=== PATIENT | female | born 1990 | race Caucasian/White ===

== ENCOUNTER 2023-03-21 14:16 | Observation (INO) | payer OTHER ==
[~2023-03-21] VITALS: Ht 160 cm; Wt 81.2 kg
[2023-03-21] MEDS ORDERED: PNV91TAB10 PO (14:55)
== END 2023-03-21 17:10 | disposition home or self-care (01) ==
LOC: MLD 14:16
PROVIDERS: ADMIT Obstetrics & Gynecology; ATTEND Obstetrics & Gynecology
DX: O42.913 Preterm premature rupture of membranes, unspecified as to length of time between rupture and onset of labor, third trimester (principal); Z3A.34 34 weeks gestation of pregnancy
CPT/HCPCS: 76815; 81000; G0378; G0379; Q0092; 36415

== ENCOUNTER 2023-03-29 22:40 | Observation (INO) | payer OTHER ==
[~2023-03-29] VITALS: Ht 160 cm; Wt 81.6 kg
[~2023-03-29 22:40] MED LIST: PNV91TAB10 PO
[2023-03-29 23:24] VITALS: BP 105/57; PULSE 85; RESP 18; TEMP 97.7
== END 2023-03-29 23:50 | disposition home or self-care (01) ==
LOC: MLD 22:40
PROVIDERS: ADMIT Obstetrics & Gynecology; ATTEND Obstetrics & Gynecology
DX: O62.9 Abnormality of forces of labor, unspecified (principal); Z3A.34 34 weeks gestation of pregnancy
CPT/HCPCS: G0378

== ENCOUNTER 2023-04-09 14:55 | Observation (INO) | payer OTHER ==
[~2023-04-09] VITALS: Ht 160 cm; Wt 83.9 kg
[2023-04-09 16:36] LABS: BASOPHILS % (AUTO) 0.2 % (0.0-2.0); EOSINOPHILS % (AUTO) 0.4 % (0.0-4.0); HEMATOCRIT 37.2 % (36-48); HEMOGLOBIN 12.7 g/dL (12.0-16.0); LYMPHOCYTES # (AUTO) 2.1 K/uL (2.5-16.5); LYMPHOCYTES % (AUTO) 24.9 % (20.5-51.1); MEAN CORPUSCULAR HEMOGLOBIN 31 pg (27-31); MEAN CORPUSCULAR HGB CONC 34 g/dL (33-37); MEAN CORPUSCULAR VOLUME 90.2 fL (80-94); MONOCYTES # (AUTO) 0.4 K/uL (0.8-1.0); MONOCYTES % (AUTO) 4.5 % (1.7-9.3); NEUTROPHILS # (AUTO) 5.8 K/uL (1.8-7.7); PLATELET COUNT (AUTO) 219 K/uL (140-450); RED BLOOD CELL COUNT(AUTO) 4.13 MIL/uL (4.20-5.40); RED CELL DISTRIBUTION WIDTH 13.8 % (11.6-13.7); WHITE BLOOD COUNT (AUTO) 8.4 K/uL (4.8-10.8)
[2023-04-09 16:53] LABS: APPEARANCE,URINE CLEAR (CLEAR); BILIRUBIN,URINE NEGATIVE (NEGATIVE); BLOOD, URINE NEGATIVE (NEGATIVE); COLOR,URINE YELLOW (YELLOW); LEUKOCYTE ESTERASE ,URINE NEGATIVE (NEGATIVE); NITRITE, URINE NEGATIVE (NEGATIVE); PROTEIN,URINE NEGATIVE (NEGATIVE); UGLUCOSE NEGATIVE (NEGATIVE); UROBILINOGEN,URINE 0.2 EU/dL (0.2 - 1)
[2023-04-09 17:02] LABS: ALBUMIN 2.4 g/dL (3.4-5.0); ANION GAP 10.9 (8-16); CALCIUM 8.9 mg/dL (8.5-10.1); CREATININE 0.5 mg/dL (0.6-1.3); POTASSIUM 3.9 mmol/L (3.5-5.1); TOTAL BILIRUBIN 0.2 mg/dL (0.0-1.0); TOTAL PROTEIN, SERUM 7.5 g/dL (6.4-8.2)
[2023-04-09] MEDS ORDERED: LACTATED RINGERS 1,000 ML IV SCH (19:45)
[2023-04-09] MEDS: LACTATED RINGERS 1,000 ML IV SCH (20:00)
[2023-04-09 20:57] VITALS: BP 107/65; PULSE 110; RESP 20; TEMP 98
[2023-04-10] MEDS ORDERED: LACTATED RINGERS 1,000 ML IV SCH (19:45)
== END 2023-04-10 10:15 | disposition home or self-care (01) ==
LOC: MLD 14:55
PROVIDERS: ADMIT Obstetrics & Gynecology; ATTEND Obstetrics & Gynecology
DX: O60.03 Preterm labor without delivery, third trimester (principal); O36.8130 Decreased fetal movements, third trimester, not applicable or unspecified; O26.893 Other specified pregnancy related conditions, third trimester; R10.9 Unspecified abdominal pain; R42 Dizziness and giddiness; Z3A.36 36 weeks gestation of pregnancy
CPT/HCPCS: 36415; 76805; 80053; 81003; 85025; 85384; 96360; 96361; G0378; Q0092

== ENCOUNTER 2023-04-12 18:05 | Inpatient (IN) | payer OTHER ==
[~2023-04-12] VITALS: Ht 160 cm; Wt 83.9 kg
[2023-04-12] MEDS: LACTATED RINGERS 1,000 ML IV SCH (18:29)
[2023-04-12] MEDS ORDERED: METHYLERGONOVINE 0.2 MG/ML AMP IM PRN ×2 (18:50→21:30)
[2023-04-12] MEDS ORDERED: CARBOPROST 250 MCG/ML AMP IM PRN (18:50)
[2023-04-12 18:58] LABS: BILIRUBIN,URINE NEGATIVE (NEGATIVE); BLOOD, URINE NEGATIVE (NEGATIVE); COLOR,URINE YELLOW (YELLOW); LEUKOCYTE ESTERASE ,URINE NEGATIVE (NEGATIVE); NITRITE, URINE NEGATIVE (NEGATIVE); PROTEIN,URINE NEGATIVE (NEGATIVE); UGLUCOSE NEGATIVE (NEGATIVE); UROBILINOGEN,URINE 0.2 EU/dL (0.2 - 1)
[2023-04-12 18:58] LABS: BASOPHILS % (AUTO) 0.3 % (0.0-2.0); EOSINOPHILS % (AUTO) 0.3 % (0.0-4.0); HEMATOCRIT 35.5 % (36-48); HEMOGLOBIN 12.1 g/dL (12.0-16.0); LYMPHOCYTES # (AUTO) 2.2 K/uL (2.5-16.5); LYMPHOCYTES % (AUTO) 24.8 % (20.5-51.1); MEAN CORPUSCULAR HEMOGLOBIN 31 pg (27-31); MEAN CORPUSCULAR HGB CONC 34 g/dL (33-37); MEAN CORPUSCULAR VOLUME 89.9 fL (80-94); MONOCYTES # (AUTO) 0.4 K/uL (0.8-1.0); MONOCYTES % (AUTO) 4.5 % (1.7-9.3); NEUTROPHILS # (AUTO) 6.2 K/uL (1.8-7.7); NEUTROPHILS % (AUTO) 70.1 % (42.2-75.2); PLATELET COUNT (AUTO) 232 K/uL (140-450); RED BLOOD CELL COUNT(AUTO) 3.95 MIL/uL (4.20-5.40); RED CELL DISTRIBUTION WIDTH 14.1 % (11.6-13.7); WHITE BLOOD COUNT (AUTO) 8.9 K/uL (4.8-10.8)
[2023-04-12 19:00] LABS: APPEARANCE,URINE SLIGHTLY CLOUDY (CLEAR)
[2023-04-12 19:12] LABS: ALBUMIN 2.3 g/dL (3.4-5.0); ANION GAP 12.4 (8-16); CALCIUM 8.7 mg/dL (8.5-10.1); CARBON DIOXIDE 25.6 mmol/L (21-32); CREATININE 0.6 mg/dL (0.6-1.3); TOTAL BILIRUBIN 0.2 mg/dL (0.0-1.0); TOTAL PROTEIN, SERUM 7.1 g/dL (6.4-8.2)
[2023-04-12 19:14] LABS: INR 0.98 (0.8-1.2); PARTIAL THROMBOPLASTIN TIME 25.6 secs (22-35.6); PROTHROMBIN TIME 10.3 secs (10.8-13.4)
[2023-04-12] MEDS ORDERED: MORPHINE PRES FREE 5 MG/10 ML AMP IV ONE (19:40)
[2023-04-12] MEDS ORDERED: fentaNYL citrate 0.05 MG/ML VIAL ONE (19:40)
[2023-04-12] MEDS ORDERED: ONDANSETRON 4 MG/2 ML VIAL IVP PRN (20:50)
[2023-04-12] MEDS ORDERED: KETOROLAC 60 MG/2 ML VIAL IM PRN (20:50)
[2023-04-12] MEDS ORDERED: MEASLES, MUMPS, AND RUBELLA 1 VIAL SQVAC ONE (21:30)
[2023-04-12] MEDS: diphenhydrAMINE 50 MG/ML VIAL IVP PRN (21:30)
[2023-04-12] MEDS: OXYTOCIN/0.9 % SODIUM CHLORIDE 500 ML IV ONE (21:34)
[2023-04-13] MEDS: OXYTOCIN/0.9 % SODIUM CHLORIDE 500 ML IV SCH (02:55)
[2023-04-13 07:16] LABS: BASOPHILS % (AUTO) 0.1 % (0.0-2.0); HEMATOCRIT 31.1 % (36-48); HEMOGLOBIN 10.7 g/dL (12.0-16.0); LYMPHOCYTES # (AUTO) 1.3 K/uL (2.5-16.5); LYMPHOCYTES % (AUTO) 8.2 % (20.5-51.1); MEAN CORPUSCULAR HEMOGLOBIN 31 pg (27-31); MEAN CORPUSCULAR HGB CONC 34 g/dL (33-37); MEAN CORPUSCULAR VOLUME 89.2 fL (80-94); MONOCYTES # (AUTO) 0.6 K/uL (0.8-1.0); MONOCYTES % (AUTO) 3.6 % (1.7-9.3); NEUTROPHILS # (AUTO) 13.9 K/uL (1.8-7.7); NEUTROPHILS % (AUTO) 88.1 % (42.2-75.2); PLATELET COUNT (AUTO) 215 K/uL (140-450); RED BLOOD CELL COUNT(AUTO) 3.49 MIL/uL (4.20-5.40); RED CELL DISTRIBUTION WIDTH 13.7 % (11.6-13.7); WHITE BLOOD COUNT (AUTO) 15.7 K/uL (4.8-10.8)
[2023-04-13] MEDS: diphenhydrAMINE 50 MG/ML VIAL ONE (08:41)
[2023-04-13] MEDS ORDERED: MEDS-TO-BEDS MC SCH (09:00)
[2023-04-13] MEDS: HYDROXYZINE HYDROCHLORIDE 25 MG TAB PO PRN (12:46)
[2023-04-13] MEDS: IBUPROFEN 800 MG TAB PO SCH (13:01)
[2023-04-13] MEDS: oxyCODONE/APAP 5/325 MG 1 TAB TAB PO PRN (18:16)
[2023-04-13] MEDS ORDERED: CAMERA MC ONE (19:18)
[2023-04-13] MEDS: diphenhydrAMINE 50 MG/ML VIAL IVP PRN (20:34)
[2023-04-14] MEDS: bisacodyL 10 MG SUPP RC SCH (08:17)
[2023-04-14] MEDS ORDERED: IBUPROFEN 600 MG TAB PO PRN (19:35)
[2023-04-14] MEDS ORDERED: CAMERA MC ONE (19:50)
[2023-04-14] MEDS: bisacodyL 5 MG TABEC PO PRN (20:43)
== END 2023-04-15 14:05 | disposition home or self-care (01) | DRG 540 ==
LOC: MLD 18:05 → MFCC 22:25
PROVIDERS: ADMIT Obstetrics & Gynecology; ATTEND Obstetrics & Gynecology
PROC: 10D00Z1 Extraction of Products of Conception, Low, Open Approach (ICD-10-PCS; principal; 2023-04-12 19:00)
DX: O32.1XX0 Maternal care for breech presentation, not applicable or unspecified (principal); O36.5930 Maternal care for other known or suspected poor fetal growth, third trimester, not applicable or unspecified; Z37.0 Single live birth; Z3A.37 37 weeks gestation of pregnancy
CPT/HCPCS: 36415; 51702; 80053; 81003; 85025; 85610; 85730; 86592; 86886; 86900; 86901; J0690; J1200; J2210; J2590; J3010; J7060